=== PATIENT | male | born 1955 | race Caucasian/White ===

== ENCOUNTER → 2016-08-21 | Outpatient (CLI) | payer BC ==
[~2016-08-21] MED LIST: ASCO10004 PO; CHOL200024 PO; CHONDROITIN PO; GLUC1500 PO; KRIL500C PO; MULT-412 PO; RAMI5CAP PO; VITA400C40 PO
[2016-08-21 11:31] LABS: BLOOD UREA NITROGEN 13 mg/dL (7-18)
[2016-08-21 11:59] LABS: ASPARTATE AMINO TRANSFERASE 29 U/L (15-37)
== END | disposition home or self-care (01) ==
LOC: STAR 10:00
PROVIDERS: ATTEND Orthopaedic Surgery
DX: Z01.818 Encounter for other preprocedural examination (principal); S83.272A Complex tear of lateral meniscus, current injury, left knee, initial encounter; S83.232A Complex tear of medial meniscus, current injury, left knee, initial encounter; G56.00 Carpal tunnel syndrome, unspecified upper limb; M72.0 Palmar fascial fibromatosis [Dupuytren]; X58.XXXA Exposure to other specified factors, initial encounter; Y93.89 Activity, other specified; Y92.89 Other specified places as the place of occurrence of the external cause; Y99.8 Other external cause status
CPT/HCPCS: 36415; 80053; 93005

== ENCOUNTER 2016-08-28 11:04 | Day surgery (SDC) | payer BC ==
[~2016-08-28] VITALS: Ht 182.9 cm; Wt 79.5 kg
[2016-08-28] MEDS ORDERED: LACTATED RINGERS 1,000 ML IV SCH (11:47)
[2016-08-28 11:51] VITALS: BP 148/89
[2016-08-28] MEDS ORDERED: MIDAZOLAM 1 MG/ML, 2ML ONE (12:20)
[2016-08-28] MEDS ORDERED: FENTANYL PF 250 MCG/5ML ONE (12:20)
[2016-08-28] MEDS ORDERED: BUPIVACAINE/PF-EPI 0.25% 1:200K ONE (13:40)
[2016-08-28] MEDS ORDERED: KETAMINE 10 MG/ML, 20ML ONE (13:45)
[2016-08-28] MEDS ORDERED: PROPOFOL 10 MG/ML, 20ML ONE (13:48)
[2016-08-28] MEDS ORDERED: EPHEDRINE 50 MG/ML, 1ML ONE (13:48)
[2016-08-28] MEDS ORDERED: CEFAZOLIN 1,000 MG ONE (13:48)
[2016-08-28] MEDS ORDERED: ONDANSETRON 2MG/ML, 2ML ONE (13:48)
[2016-08-28] MEDS ORDERED: DEXAMETHASONE 4 MG/ML, 5ML ONE (13:48)
[2016-08-28] MEDS ORDERED: ROPIvacaine/PF 0.5%, 30 ML INFIL ONE (14:04)
[2016-08-28] MEDS ORDERED: LIDOCAINE 1%-EPI 1:100K, 30ML INFIL ONE (14:04)
[2016-08-28] MEDS ORDERED: MEPERIDINE/PF 25MG/0.5ML IVPush PRN (15:30)
[2016-08-28] MEDS ORDERED: METOCLOPRAMIDE 5 MG/ML, 2ML IV PRN (15:30)
[2016-08-28] MEDS ORDERED: FENTANYL PF 100 MCG/2ML IV PRN (15:30)
[2016-08-28] MEDS ORDERED: HYDROcodone/APAP 7.5-325MG/15ML UDC PO PRN (15:30)
[2016-08-28] MEDS ORDERED: HYDROcodone/APAP 7.5-325MG/15ML UDC ONE (16:16)
[2016-08-28] MEDS ORDERED: HYDROmorphone 2 MG/ML, 1ML ONE (16:16)
[2016-08-28] MEDS: HYDROmorphone 1 MG/ML, 1ML IV PRN ×2 (16:21→16:55)
== END 2016-08-28 17:55 ==
LOC: OUT 11:04
PROVIDERS: ATTEND Orthopaedic Surgery
DX: S83.242A Other tear of medial meniscus, current injury, left knee, initial encounter (principal); S83.282A Other tear of lateral meniscus, current injury, left knee, initial encounter; M94.262 Chondromalacia, left knee; M65.862 Other synovitis and tenosynovitis, left lower leg; I10 Essential (primary) hypertension; X58.XXXA Exposure to other specified factors, initial encounter; Y93.9 Activity, unspecified; Y92.9 Unspecified place or not applicable; Y99.9 Unspecified external cause status
CPT/HCPCS: 29880; 88304; J0690; J1100; J1170; J2250; J2405; J2704; J2795; J3010; J3490; J7120